=== PATIENT | female | born 1965 | race Caucasian/White ===

== ENCOUNTER → 2019-04-06 | Outpatient (CLI) | payer OTHER ==
[~2019-04-06] MED LIST: ACEBUTCAFT PO; ACET500 PO; ALBU90OI INH; ALEN70 PO; CEPH500 PO; CITA20 PO; CRUTCH4 USE; CYCL10 PO; DOXY100 PO; DULO60; ESCI10 PO; HYDACE10B PO; HYDACE5 PO; IBUP400 PO; IBUP800 PO; KETO10 PO; MECL25 PO; OXYACE5T PO; OXYC10ER PO; PENVK500 PO; PROACE100 PO; RANI150 PO; TRAM50 PO; VALD20 PO
[2019-04-07 04:07] LABS: HIV SCREEN 4TH GENERATION WRFX Non Reactive (Non Reactive)
[2019-04-07 06:09] LABS: HBSAG SCREEN Negative (Negative); HCV ANTIBODY <0.1 (0.0-0.9)
== END | disposition home or self-care (01) ==
LOC: LAB EV 13:05 → LAB SHORT 13:05
PROVIDERS: Family Medicine
DX: Z20.9 Contact with and (suspected) exposure to unspecified communicable disease (principal)
CPT/HCPCS: 84460; 86317; 86803; 87340; 87389